=== PATIENT | female | born 1995 | race Caucasian/White ===

== ENCOUNTER 2025-07-09 02:24 | Emergency (ER) | payer OTHER, SELFPAY ==
[2025-07-09 02:26] VITALS: BP 125/87
--- NOTE | 2025-07-09 02:46 | ED.GENMED ---
History of Present Illness
General
Chief Complaint: Headache
Source: patient
Time Seen by Provider: 07/09/25 02:41
History of Present Illness
History of Present Illness:
29-year-old female presents to the emergency room complaining of a headache. Patient has a history of migraine headaches. She history by her primary care doctor. She has used Imitrex for migraines in the past but does not really like the way it
makes her feel. She does not have any available at this time. She took Tylenol and ibuprofen at home without any improvement. Last dose of ibuprofen was about 10 pm (4 hours ago). No focal weakness numbness or tingling. Headache is similar to
previous migraine headaches but more severe.
Phy Exam
Physical Exam
Physical Exam:
General: Awake, Alert, Oriented X3. No acute distress.
Vitals: unremarkable
Head: Atraumatic
Eyes: Pupils equal, EOMI
Throat: Airway intact, no exudates
Neck: Trachea midline
Lungs: Clear and equal b/l
Heart: Regular rate, no murmurs
Abd: Soft, Nontender, No pulsatile mass
Neuro: Cranial nerves intact, muscle strength equal bilaterally
Skin: Warm, dry, no rash
Extremities: pulses equal b/l, no edema
Course
Orders/Labs/Results
Orders:
Orders
07/09/25 02:46
Diphenhydramine [Benadryl] 25 mg IV NOW STA
07/09/25 03:54
Metoclopramide [Reglan] 10 mg IV NOW STA
Vital Signs
Initial and Last Documented VS:
Initial Vital Signs
Temp Pulse Resp BP Pulse Ox
98.6 F 92 22 125/87 97
07/09/25 02:26 07/09/25 02:26 07/09/25 02:26 07/09/25 02:26 07/09/25 02:26
Last Documented Vital Signs
Temp Pulse Resp BP Pulse Ox
98.6 F 86 20 123/75 97
07/09/25 03:09 07/09/25 03:09 07/09/25 03:09 07/09/25 03:09 07/09/25 03:10
MDM/Problems Addressed
Differential Diagnosis Includes:
Migraine, tension headache, cluster headache
MDM/Problems Addressed:
Patient presents with a headache that is typical for her previous migraines no worse than normal. Ultimately felt better after Reglan and Benadryl. Stable for discharge home. No focal neurologic findings to suggest alternative diagnosis.
*Pulse Oximetry
SaO2: 97
Oxygen Mode of Delivery: Room air
Patient hypoxic: no
*Critical Care Note
Total Time (30-74mins, 75-104mins- exclusive of procedures): Not Applicable
ED Attending Note
-
Portions of this chart may have been created with voice recognition software.� Occasional wrong word or��sound alike� substitutions may have occurred due to the inherent limitations of voice recognition software.
Discharge Plan
Departure
Patient Disposition: Home (Routine Discharge)
Date of Disposition: 07/09/25
Time of Disposition: 04:29
Patient with high blood pressure during this ER visit?: No
Condition: Good
Discharge Problem:
Migraine
Instructions: Migraines (DC)
Prescriptions:
No Action
No Current Medications
0
Referrals:
Wilfred Rivera DO [Family Provider, Family Practice]
Interventions
Interventions:
*Risk Screen - Suicide Last Done: 07/09/25 02:26
*General Assessment Last Done: 07/09/25 02:26
*Neglect/Abuse Screening Last Done: 07/09/25 02:26
*ED- Fall Risk Assessment Last Done: 07/09/25 02:26
*ED COVID-19 Vaccine History Last Done: 07/09/25 02:26
*ED Influenza Vaccine History Last Done: 07/09/25 03:02
*Nursing Disposition Last Done: 07/09/25 04:40
ED- Neurological Assessment Last Done: 07/09/25 03:02
Discharge Date and Time
Discharge Date/Time: 07/09/25 04:41
Print Language: [id number]
[2025-07-09] MEDS: BENADRYL 25 MG IV (02:59)
[2025-07-09 03:09] VITALS: BP 123/75
[2025-07-09 03:13] VITALS: BMI 36.3
[2025-07-09] MEDS: REGLAN 10 MG IV (03:56)
== END 2025-07-09 04:41 | disposition home or self-care (01) ==
LOC: EMR 02:24
PROVIDERS: EMERGENCY PHYSICIAN Emergency Medicine; FAMILY PHYSICIAN Family Medicine
DX: G43.909 Migraine, unspecified, not intractable, without status migrainosus (principal)
CPT/HCPCS: 99284; 96374; 96375